=== PATIENT | male | born 1985 | race Caucasian/White ===

== ENCOUNTER 2023-04-30 06:25 | Emergency (ER) | payer BC, SELFPAY ==
[2023-04-30 06:28] VITALS: BP 132/97; PULSE 87; RESP 16; TEMP 36.7; O2SAT 98; BMI 28.2
--- NOTE | 2023-04-30 06:48 | ED_ITS ---
Discharge Plan Disposition Patient Disposition: Home, Self-Care Prescriptions Prescriptions: New ondansetron 4 mg tablet,disintegrating 4 mg PO Q6H PRN (Reason: nausea and vomiting) Qty: 12 3RF meclizine 25 mg tablet 25 mg PO TID PRN (Reason: motion sickness) Qty: 30 1RF Referrals Follow up/Referrals: Rakan Prado MD [Primary Care Provider] - See instructions Activity Restrictions/Add. Instructions Additional Instructions/Restrictions: Call your family doctor to establish care for this visit to the emergency department and schedule follow-up within 48 hours to ensure improvement. If you have any worsening of your condition or any other concerning signs or symptoms, return to the emergency department or your primary care doctor for further evaluation. Also see your family doctor regarding possible referral to ENT and prescription refills if symptoms persist. Clinical Impressions Clinical Impression: Nausea & vomiting, Motion sickness Instructions Patient Instructions: DI for Diarrhea and Traveler's Diarrhea -- Adult, DI for Diarrhea and Traveler's Diarrhea -- Child, DI for Nausea -- Adult, DI for Nausea -- Child Discharge ED Provider: Morteza Kurtz General Adult HPI <Мария Garza DO - Last Filed: 04/30/23 07:15> General Chief complaint: Nausea/Vomiting/Diarrhea Stated complaint: vomitting mostly when in vehicle Time Seen by Provider: 04/30/23 06:37 Mode of Arrival: Ambulatory Source of Information: Patient Limitations: No Limitations Description of Symptoms (Recalled from ER Triage Doc. by RN): Pt states he is experiencing intermittent N/V especially with movement & driving for 3 weeks now. Pt had recent lasix sx on 04/16 and he states it has gotten worse since that. History of Present Illness HPI narrative: This patient is a 38-year-old male presenting to the emergency department for evaluation with concern for intermittent nausea and vomiting that happens usually with movement, driving, and looking at screens for approximately 3 weeks. He states that he had lasik surgery on 04/16 and his symptoms have been worse since then. He notes that nothing specifically seems to trigger it, and it happens randomly. No specific food triggers, and he is still able to tolerate oral intake. He notes the symptoms gets a twinge in his epigastric region, but otherwise no significant abdominal pain. No dizziness, vertigo, headache, vision changes, changes in bowel movements, or other concerns. He also denies any sinus congestion, inner ear issues, or other issues. Related Data Previous Rx's Medication Instructions Recorded meclizine 25 mg tablet 25 mg PO TID PRN motion sickness 04/30/23 #30 tabs ondansetron 4 mg disintegrating 4 mg PO Q6H PRN nausea and 04/30/23 tablet vomiting #12 tabs Allergies Allergy/AdvReac Type Severity Reaction Status Date / Time No Known Allergies Allergy Verified 04/30/23 07:14 [facility] <Мария Garza DO - Last Filed: 04/30/23 07:15> [facility] Disclaimer: The information contained in this section may have been updated after the patient was seen, as this information can be updated by other users. Social History (Updated 04/30/23 @ 07:15 by Мария Garza DO) Smoking Status: Never smoker alcohol intake: never current occupational status: employed Travel in the last 8 weeks: None <Мария Garza DO - Last Filed: 04/30/23 07:15> ROS Obtained: Yes All systems reviewed & no additional complaints except as documented Physical Exam <Мария Garza DO - Last Filed: 04/30/23 07:15> General General appearance: alert and in no apparent distress Head Head exam: atraumatic and normocephalic Eye Eye exam: Present normal appearance, PERRL, EOMI and nystagmus (unidirectional horizontal nystagmus without significant symptoms associated) ENT ENT exam: Present normal exam, normal oropharynx, mucous membranes moist and normal external ear exam Neck Neck exam: Present normal inspection, full ROM and trachea midline; Absent tenderness Chest Chest inspection: Present normal inspection and symmetric chest wall rise; Absent tenderness Respiratory Respiratory exam: Present normal lung sounds bilaterally; Absent respiratory distress, wheezes, stridor or accessory muscle use Cardiovascular Cardiovascular exam: Present regular rate and normal rhythm Abdominal Exam Abdominal exam: Present soft; Absent distention, tenderness or guarding Extremities Exam Extremities exam: Present normal inspection, full ROM and normal capillary refill; Absent tenderness or edema Back Exam Back exam: Present normal inspection and full ROM; Absent tenderness Neurological Exam Neurological exam: Present alert, oriented X3, CN II-XII intact and normal gait; Absent motor sensory deficit Psychiatric Psychiatric exam: Present normal affect and normal mood Skin Skin exam: Present warm and dry Medical Decision Making <Мария N Garza, DO - Last Filed: 04/30/23 07:15> Medical Records Medical records reviewed: Yes I reviewed the patient's medical records. Kurtis Inquiry Pt receiving controlled substance: No Vital Signs: 04/30/23 06:28 04/30/23 08:00 Temperature 98.1 F Temperature Source Oral Pulse Rate 72 Pulse Rate [Left] 87 Respiratory Rate 16 20 Blood Pressure 116/79 Blood Pressure [Right Arm] 132/97 H Blood Pressure Mean 89 Blood Pressure Mean [Right Arm] 108 Blood Pressure Source [Right Arm] Automatic Cuff Blood Pressure Position [Right Arm] Sitting 02 Sat by Pulse Oximetry 98 99 Oxygen Delivery Method Room Air Lab Data Lab results reviewed: Yes I reviewed the patient's lab results. Lab Results 04/30/23 07:09: WBC 4.7 L, RBC 5.01, Hgb 15.4, Hct 45.0, MCV 89.9, MCH 30.8, MCHC 34.2, RDW 13.1, Plt Count 228, MPV 8.0, Neut % (Auto) 66.6, Lymph % (Auto) 23.9, [place] % (Auto) 5.5, Eos % (Auto) 2.7, Baso % (Auto) 1.3, Neut # (Auto) 3.1, Lymph # (Auto) 1.1, [place] # (Auto) 0.3, Eos # (Auto) 0.1, Baso # (Auto) 0.1, Sodium 139, Potassium 4.6, Chloride 106, Carbon Dioxide 28, Anion Gap 9.6, BUN 24 H, Creatinine 1.20, Estimated Creat Clear 95, Estimated GFR 68, Est GFR ( Amer) 82, Glucose 111 H, Calcium 8.8, Total Bilirubin 0.7, AST 33, ALT 27, Alkaline Phosphatase 87, Total Protein 7.5, Albumin 4.4, Globulin 3.1, Albumin/Globulin Ratio 1.4, Lipase 125 04/30/23 07:12: Urine Color Yellow, Urine Appearance Clear, Urine pH 5.5, Ur Specific [place] >= 1.030, Urine Protein Negative, Urine Glucose (UA) Negative, Urine Ketones Negative, Urine Blood Negative, Urine Nitrate Negative, Urine Bilirubin Negative, Urine Urobilinogen 0.2, Ur Leukocyte Esterase Negative 04/30/23 07:09 04/30/23 07:09 Orders (Tests/Meds): ED MEDICATIONS Generic Name Dose Route Start Last Admin Trade Name Freq PRN Reason Stop Dose Admin Sodium Chloride 8 ml 04/30/23 06:47 Sodium Chloride 0.9% 10ml Vial IV 05/30/23 06:46 NEEDED PRN dilute pepcid Discontinued Medications Generic Name Dose Route Start Last Admin Trade Name Freq PRN Reason Stop Dose Admin Famotidine 20 mg 04/30/23 06:47 04/30/23 07:23 Famotidine 20mg/2ml Vial IV 04/30/23 06:48 20 mg ONCE ONE Administration Lactated Ringer's 1,000 mls @ 999 mls/hr 04/30/23 06:47 04/30/23 07:23 Lactated Ringer's 1000 Ml Bag IV 04/30/23 07:47 999 mls/hr .Q1H1M ONE Administration Meclizine HCl 25 mg 04/30/23 06:59 04/30/23 07:23 Meclizine 25mg Tablet PO 04/30/23 07:00 25 mg ONCE ONE Administration Ondansetron HCl 4 mg 04/30/23 06:47 04/30/23 07:23 Ondansetron 4mg/2ml Vial IV 04/30/23 06:48 4 mg ONCE ONE Administration ORDERS Category Date Time Status Complete Blood Count Auto Diff Stat Lab 04/30/23 07:09 Completed Comprehensive Metabolic Panel Stat Lab 04/30/23 07:09 Completed Lipase Stat Lab 04/30/23 07:09 Completed Urinalysis and Microscopic Stat Lab 04/30/23 07:12 Results Medical Decision Narrative: In summary, this patient is a 38-year-old male presenting to the Emergency Department for evaluation of intermittent nausea and vomiting over the last 3 weeks, which seems to be worsened by LASIK surgery. No identifiable triggers, but he states that he feels worse when he is in his vehicle. Differential diagnoses considered include but are not limited to vertigo, BPPV, anxiety, gastroparesis, biliary dysfunction, pancreatic dysfunction, gastroparesis. Ruling out the most morbid conditions drove assessment. On exam, patient is well-appearing and neurologically intact with benign abdominal exam. He does have unidirectional horizontal nystagmus on extraocular muscle testing, however he denies any vertigo, dizziness, or other acute concerns. His exam is very benign and given the chronicity of the symptoms, I doubt acute surgical pathology. I also do not have suspicion for intracranial pathology given reassuring exam and lack of neurologic symptoms. Workup included CBC, CMP, lipase, urinalysis. He was given a bolus of IV fluids as well as oral meclizine, IV Zofran, and IV Pepcid to assess for symptomatic improvement. Patient care signed out to the oncoming provider, Dr. Kurtz, pending results and reassessment. <Morteza Kurtz MD - Last Filed: 04/30/23 08:20> Vital Signs: 04/30/23 06:28 04/30/23 08:00 Temperature 98.1 F Temperature Source Oral Pulse Rate 72 Pulse Rate [Left] 87 Respiratory Rate 16 20 Blood Pressure 116/79 Blood Pressure [Right Arm] 132/97 H Blood Pressure Mean 89 Blood Pressure Mean [Right Arm] 108 Blood Pressure Source [Right Arm] Automatic Cuff Blood Pressure Position [Right Arm] Sitting 02 Sat by Pulse Oximetry 98 99 Oxygen Delivery Method Room Air Lab Data Lab Results 04/30/23 07:09: WBC 4.7 L, RBC 5.01, Hgb 15.4, Hct 45.0, MCV 89.9, MCH 30.8, MCHC 34.2, RDW 13.1, Plt Count 228, MPV 8.0, Neut % (Auto) 66.6, Lymph % (Auto) 23.9, [place] % (Auto) 5.5, Eos % (Auto) 2.7, Baso % (Auto) 1.3, Neut # (Auto) 3.1, Lymph # (Auto) 1.1, [place] # (Auto) 0.3, Eos # (Auto) 0.1, Baso # (Auto) 0.1, Sodium 139, Potassium 4.6, Chloride 106, Carbon Dioxide 28, Anion Gap 9.6, BUN 24 H, Creatinine 1.20, Estimated Creat Clear 95, Estimated GFR 68, Est GFR ( Amer) 82, Glucose 111 H, Calcium 8.8, Total Bilirubin 0.7, AST 33, ALT 27, Alkaline Phosphatase 87, Total Protein 7.5, Albumin 4.4, Globulin 3.1, Albumin/Globulin Ratio 1.4, Lipase 125 04/30/23 07:12: Urine Color Yellow, Urine Appearance Clear, Urine pH 5.5, Ur Specific [place] >= 1.030, Urine Protein Negative, Urine Glucose (UA) Negative, Urine Ketones Negative, Urine Blood Negative, Urine Nitrate Negative, Urine Bilirubin Negative, Urine Urobilinogen 0.2, Ur Leukocyte Esterase Negative Orders (Tests/Meds): ED MEDICATIONS Generic Name Dose Route Start Last Admin Trade Name Freq PRN Reason Stop Dose Admin Sodium Chloride 8 ml 04/30/23 06:47 Sodium Chloride 0.9% 10ml Vial IV 05/30/23 06:46 NEEDED PRN dilute pepcid Discontinued Medications Generic Name Dose Route Start Last Admin Trade Name Freq PRN Reason Stop Dose Admin Famotidine 20 mg 04/30/23 06:47 04/30/23 07:23 Famotidine 20mg/2ml Vial IV 04/30/23 06:48 20 mg ONCE ONE Administration Lactated Ringer's 1,000 mls @ 999 mls/hr 04/30/23 06:47 04/30/23 07:23 Lactated Ringer's 1000 Ml Bag IV 04/30/23 07:47 999 mls/hr .Q1H1M ONE Administration Meclizine HCl 25 mg 04/30/23 06:59 04/30/23 07:23 Meclizine 25mg Tablet PO 04/30/23 07:00 25 mg ONCE ONE Administration Ondansetron HCl 4 mg 04/30/23 06:47 04/30/23 07:23 Ondansetron 4mg/2ml Vial IV 04/30/23 06:48 4 mg ONCE ONE Administration ORDERS Category Date Time Status Complete Blood Count Auto Diff Stat Lab 04/30/23 07:09 Completed Comprehensive Metabolic Panel Stat Lab 04/30/23 07:09 Completed Lipase Stat Lab 04/30/23 07:09 Completed Urinalysis and Microscopic Stat Lab 04/30/23 07:12 Results Medical Decision Narrative: In summary, this patient is a 38-year-old male presenting to the Emergency Department for evaluation of intermittent nausea and vomiting over the last 3 weeks, which seems to be worsened by LASIK surgery. No identifiable triggers, but he states that he feels worse when he is in his vehicle. Differential diagnoses considered include but are not limited to vertigo, BPPV, anxiety, gastroparesis, biliary dysfunction, pancreatic dysfunction, gastroparesis. Ruling out the most morbid conditions drove assessment. On exam, patient is well-appearing and neurologically intact with benign abdominal exam. He does have unidirectional horizontal nystagmus on extraocular muscle testing, however he denies any vertigo, dizziness, or other acute concerns. His exam is very benign and given the chronicity of the symptoms, I doubt acute surgical pathology. I also do not have suspicion for intracranial pathology given reassuring exam and lack of neurologic symptoms. Workup included CBC, CMP, lipase, urinalysis. He was given a bolus of IV fluids as well as oral meclizine, IV Zofran, and IV Pepcid to assess for symptomatic improvement. Patient care signed out to the oncoming provider, Dr. Kurtz, pending results and reassessment. Tessie: I assume primary responsibility for this patient after signout from previous physician. EKG independently interpreted and significant for sinus rhythm 66 beats a minute without ST or T wave changes concerning for acute ischemia. IL, QRS, QT intervals within normal limits. Cisco normal. Independently interpreted workup. Nonactionable CBC or chemistry. Lipase negative, urinalysis negative. On my evaluation, patient still asymptomatic. He states that he has struggled with motion sickness as well as anxiety in the past. He states that he started vomiting before his LASEK surgery on 04/16, however he was attributing that to anxiety about the surgery. Since the surgery it has persisted. He states that largely only when he is driving. Used to get motion sick anytime he was in the car, it was not until recently that he started getting motion sick while driving. Reassurance was given. Patient was given dose of Zofran prior to discharge. Is recommended that he follow-up with ear nose and throat doctors and follow-up with his primary care doctor regarding this visit to the emergency department for further evaluation of his motion sickness and potential inner ear abnormality. He voiced his understanding. Because patient at baseline without signs or symptoms of clinical decompensation, deemed appropriate for discharge. Results were relayed to patient who voiced understanding and were agreeable to outpatient management and follow up. At the time of discharge the patient was hemodynamically stable, tolerating PO, and mobilizing appropriately. Sent home with meclizine and Zofran Critical Care <Мария Garza, - Last Filed: 04/30/23 07:15> Critical Care Time Critical Care Time: No
[2023-04-30 07:20] LABS: Microscopic, Urine URINE MICROSCOPIC (MICROSCOPIC)
[2023-04-30 07:22] LABS: Basophils # 0.1 K/mm3 (0-0.2); Basophils % 1.3 % (0.1-2.0); Eosinophils # 0.1 K/mm3 (0.0-0.4); Eosinophils % 2.7 % (0.1-12.0); Hemoglobin 15.4 g/dL (14.1-18.0); Lymphocytes # 1.1 K/mm3 (0.7-4.5); Lymphocytes % 23.9 % (10-50); Mean Corpuscular HGB Conc 34.2 g/dL (31.8-35.4); Mean Corpuscular Hemoglobin 30.8 pg (27.0-31.2); Mean Corpuscular Volume 89.9 fl (80-94); Monocytes # 0.3 K/mm3 (0.1-1.0); Monocytes % 5.5 % (1.7-9.3); Neutrophils # 3.1 K/mm3 (1.8-7.8); Neutrophils % 66.6 % (37.0-80.0); Platelet Count 228 K/mm3 (142-424); Red Blood Count 5.01 M/mm3 (4.60-6.20); Red Cell Distribution Width 13.1 % (11.5-17.5); White Blood Count 4.7 K/mm3 (4.8-10.8)
[2023-04-30] MEDS: MECLIZINE 25MG TABLET 25 MG PO (07:23)
[2023-04-30] MEDS: FAMOTIDINE 20MG/2ML VIAL 20 MG IV (07:23)
[2023-04-30] MEDS: LACTATED RINGERS 1000ML 1,000 ML 999 ML IV (07:23)
[2023-04-30] MEDS: ONDANSETRON 4MG/2ML VIAL 4 MG IV ×2 (07:23→08:23)
--- NOTE | 2023-04-30 07:26 | PC.NURSE ---
Rounded on pt. No needs voiced at this time. Call light placed within reach.
[2023-04-30 07:30] LABS: Appearance,Urine CLEAR (Clear); Bilirubin,Urine Negative (Negative); Blood, Urine Negative (Negative); Color,Urine YELLOW (Yellow); Glucose,Urine (UA) Negative (Negative); Ketones,Urine Negative (Negative); Leukocyte Esterase,Urine Negative (Negative); Nitrate,Urine Negative (Negative); PH,Urine 5.5 (5.0-8.5); Protein,Urine Negative (Negative); Specific Gravity, Urine >= 1.030 (1.005-1.030); Urobilinogen,Urine 0.2 EU/dl (0.2)
[2023-04-30 07:33] LABS: Alanine Aminotransferase 27 U/L (12-78); Albumin Level 4.4 g/dl (3.5-5.0); Albumin/Globulin Ratio 1.4 (1.1-1.8); Alkaline Phosphatase 87 U/L (38-126); Anion Gap 9.6 mEq/L (5-15); Aspartate Amino Transferase 33 U/L (17-59); Bilirubin,Total 0.7 mg/dl (0.2-1.3); Blood Urea Nitrogen 24 mg/dl (9-20); Calcium 8.8 mg/dl (8.4-10.2); Carbon Dioxide 28 mmol/L (22.0-30.0); Chloride 106 mmol/L (98-107); Creatinine Clearance Estimated 95 mL/min (50-200); Estimated Glomerular Filt Rate 68 ml/min (>60); GFR (African American) 82 ML/MIN (>60); Globulin 3.1 g/dL (1.3-3.2); Glucose 111 mg/dl (74-100); Lipase 125 U/L (23-300); Potassium 4.6 mmoL/L (3.5-5.1); Sodium 139 mmol/L (136-145); Total Protein,Serum 7.5 g/dl (6.3-8.2)
--- NOTE | 2023-04-30 07:33 | ECG_ITS ---
APPROVED REPORT Exam: Resting ECG HR:66 bpm ECG Measurements Heart Rate 66 AXES GA 158 P 42 QRSd 90 QRS 68 QT 371 T 48 QTc 385 Conclusion SINUS RHYTHM NORMAL ECG Electronically signed by : AKHIL NASH, 05/01/2023 03:30:25
[2023-04-30 08:00] VITALS: BP 116/79; PULSE 72; RESP 20; O2SAT 99
--- NOTE | 2023-04-30 08:08 | PC.NURSE ---
Rounded on pt. Advised his pain has improved after medication. No needs voiced and call light remains within reach.
--- NOTE | 2023-04-30 08:10 | PC.NURSE ---
Dr. Kurtz at [facility] to update pt on results and POC
[2023-04-30 08:41] VITALS: BP 116/79; PULSE 76; RESP 18; TEMP 36.6; O2SAT 99
[2023-04-30 08:52] LABS: Bacteria,Urine Trace /lpf; Squamous Epithelial Cell,Urine Occasional #/hpf (0-5); WBC,Urine Occasional #/hpf (0-3)
== END 2023-04-30 08:48 | disposition home or self-care (01) ==
PROVIDERS: Emergency Medicine; Emergency Provider Emergency Medicine; PCP Student in an Organized Health Care Education/Training Program
DX: R11.2 Nausea with vomiting, unspecified (principal)
CPT/HCPCS: 80053; 81001; 83690; 85025; 93005; 96361; 96374; 96375; 99285; J2405